=== PATIENT | female | born 1995 | race African-American/Black ===

== ENCOUNTER 2017-03-12 21:22 | Emergency (ER) | payer BC ==
[~2017-03-12] VITALS: Ht 167.6 cm; Wt 93.0 kg
[2017-03-12 21:40] VITALS: BP 131/68
--- NOTE | 2017-03-12 22:12 | PHYS DOC ---
Past Medical History Past Medical History: No Pertinent History Past Surgical History: No Surgical History Alcohol Use: None Drug Use: None Adult General Chief Complaint Chief Complaint: SORE THROAT HPI HPI Patient is a 21 year old female presents to the emergency department with a 3 day history of cough and congestion with sore throat. Patient states she has been taking ibuprofen and some cough medication over the counter. Patient denies fever, chills, nausea or vomiting. Review of Systems Review of Systems Constitutional: Denies fever or chills [] Eyes: Denies change in visual acuity, redness, or eye pain [] HENT: nasal congestion and sore throat [] Respiratory: Denies cough or shortness of breath [] Cardiovascular: No additional information not addressed in HPI [] GI: Denies abdominal pain, nausea, vomiting, bloody stools or diarrhea [] : Denies dysuria or hematuria [] Musculoskeletal: Denies back pain or joint pain [] Integument: Denies rash or skin lesions [] Neurologic: Denies headache, focal weakness or sensory changes [] Endocrine: Denies polyuria or polydipsia [] Physical Exam Physical Exam Constitutional: Well developed, well nourished, no acute distress, non-toxic appearance. [] HENT: Normocephalic, atraumatic, bilateral external ears normal, oropharynx moist, no oral exudates, nose normal. Bilateral TM normal, throat with clear post nasal drip noted. Bilateral anterior cervical adenopathy noted. Eyes: PERRLA, EOMI, conjunctiva normal, no discharge. [] Neck: Normal range of motion, no tenderness, supple, no stridor. [] Cardiovascular:Heart rate regular rhythm, no murmur [] Lungs & Thorax: Bilateral breath sounds clear to auscultation [] Skin: Warm, dry, no erythema, no rash. [] Back: No tenderness Extremities: No tenderness, no cyanosis, no clubbing, ROM intact, no edema. [] Neurologic: Alert and oriented X 3, normal motor function, normal sensory function, no focal deficits noted. [] Psychologic: Affect normal, judgement normal, mood normal. [] Current Patient Data Vital Signs Vital Signs Date Time Temp Pulse Resp B/P (MAP) Pulse Ox O2 Delivery O2 Flow Rate FiO2 03/12/17 21:40 98.8 76 20 99 Room Air 98.8 EKG EKG [] Radiology/Procedures Radiology/Procedures [] Course & Med Decision Making Course & Med Decision Making Pertinent Labs and Imaging studies reviewed. (See chart for details) Rapid strep negative. Patient was encouraged to use Mucinex DM over the counter to help relieve the nasal congestion and cough. Tylenol or Ibuprofen for fever, chills or generalized body aches. Drink plenty of fluids. Followup with primary care provider in 3-5 days. Signs and symptoms to return to the emergency department has been provided. [] Dragon Disclaimer Dragon Disclaimer This electronic medical record was generated, in whole or in part, using a voice recognition dictation system. Departure Departure Impression: Primary Impression: URI (upper respiratory infection) Disposition: HOME, SELF-CARE Condition: STABLE Referrals: NO PCP (PCP) Patient Instructions: Upper Respiratory Infection, Adult, [id number] Additional Instructions: Rapid strep negative Drink plenty of fluids Tylenol and ibuprofen for fever, chills and generalized body aches Mucinex DM as directed by manufacture over the counter. Rest as much as possible Followup with primary care provider in 3-5 days Return to emergency department as needed for signs and symptoms that become worse DAVID COUGHLIN APRN Mar 12, 2017 22:12
[2017-03-13 07:42] LABS: NEGATIVE OBC STREP NEG; POSITIVE OBC STREP POS
== END 2017-03-12 22:57 | disposition home or self-care (01) ==
LOC: ER 21:22
DX: J06.9 Acute upper respiratory infection, unspecified (principal)
CPT/HCPCS: 87070; 87880; 99284

== ENCOUNTER 2019-01-05 13:47 | Emergency (ER) | payer BC ==
[~2019-01-05] VITALS: Ht 170.2 cm; Wt 93.0 kg
[2019-01-05 13:54] VITALS: BP 167/87
[2019-01-05] MEDS ORDERED: NAPR-683 PO (14:52)
--- NOTE | 2019-01-05 14:52 | PHYS DOC ---
Past Medical History Past Medical History: No Pertinent History Past Surgical History: Alcohol Use: Occasionally Drug Use: None Adult General Chief Complaint Chief Complaint: CHEST PAIN HPI HPI Patient is a 23 year old female who brought in by EMS because of chest pain. Patient complaining of intermittent episodes of right-sided chest pain since 10 AM that resolves with activity and returns with rest as an aching pain and rated her pain 5/10. Patient denies other symptoms and history of injury and the same pain. She does not have cardiac risk factors. Review of Systems Review of Systems Constitutional: Denies fever or chills [] Eyes: Denies change in visual acuity, redness, or eye pain [] HENT: Denies nasal congestion or sore throat [] Respiratory: Denies cough or shortness of breath [] Cardiovascular: No additional information not addressed in HPI [] GI: Denies abdominal pain, nausea, vomiting, bloody stools or diarrhea [] : Denies dysuria or hematuria [] Musculoskeletal: Denies back pain or joint pain [] Integument: Denies rash or skin lesions [] Neurologic: Denies headache, focal weakness or sensory changes [] Endocrine: Denies polyuria or polydipsia [] All other systems were reviewed and found to be within normal limits, except as documented in this note. Allergies Allergies Allergies Coded Allergies Type Severity Reaction Last Updated Verified No Known Drug Allergies 01/05/19 No Physical Exam Physical Exam Constitutional: Well developed, well nourished, no acute distress, non-toxic appearance. [] HENT: Normocephalic, atraumatic, oropharynx moist. Eyes: PERRLA, EOMI, conjunctiva normal, no discharge. [] Neck: Normal range of motion, no tenderness, supple, no stridor. [] Cardiovascular:Heart rate regular rhythm, no murmur [] Lungs & Thorax: Bilateral breath sounds clear to auscultation, right sided chest wall reproducible pain[] Abdomen: Bowel sounds normal, soft, no tenderness, no masses, no pulsatile masses. [] Skin: Warm, dry, no erythema, no rash. [] Back: No tenderness, no CVA tenderness. [] Extremities: No tenderness, no cyanosis, no clubbing, ROM intact, no edema. [] Neurologic: Alert and oriented X 3, normal motor function, normal sensory function, no focal deficits noted. [] Psychologic: Affect normal, judgement normal, mood normal. [] Current Patient Data Vital Signs Vital Signs Date Time Temp Pulse Resp B/P (MAP) Pulse Ox O2 Delivery O2 Flow Rate FiO2 01/05/19 13:54 98.2 97 18 167/87 (113) 97 Room Air 98.2 Lab Values Laboratory Tests Test 01/05/19 14:39 POC Urine HCG, Qualitative Hcg negative (Negative) EKG EKG EKG interpreted by me. EKG at 1351 showed normal sinus rhythm at rate of 78, no acute ST and T-wave abnormalities. Radiology/Procedures Radiology/Procedures [] Course & Med Decision Making Course & Med Decision Making Evaluation of patient in ER showed 23-year-old female patient comes of intermittent episodes of right chest wall pain for the last few hours. Patient had unremarkable EKG and her pain resolved while she was in ER and didn't want more evaluation. Dragon Disclaimer Dragon Disclaimer This electronic medical record was generated, in whole or in part, using a voice recognition dictation system. Departure Departure Impression: Primary Impression: Musculoskeletal chest pain Disposition: 01 HOME, SELF-CARE (at 1449) Condition: IMPROVED Referrals: NO PCP (PCP) Patient Instructions: Chest Wall Pain Additional Instructions: Drink plenty of liquids Follow-up with your primary care physician in 3-5 days Return to ER if not getting better Scripts Naproxen (NAPROSYN) 500 Mg Tablet 1 TAB PO BID for pain, #20 TAB Prov: WAI LARRY MD 01/05/19 WAI LARRY MD January 05, 2019 14:52
--- NOTE | 2019-01-06 07:24 | EKG ---
[facility] [address] [place] [address] Test Date: 2019-01-05 Test Time: 13:51:58 Pat Name: CRISTY JEWELL Department: Room: Gender: F [employer] Equipment [employer]: : 1995 Requested By: WAI LARRY Order Number: [id number] Reading MD: Lázaro Frey Measurements Intervals North Rate: 78 P: 52 WA: 176 QRS: 23 QRSD: 86 T: 39 QT: 354 QTc: 407 Interpretive Statements SINUS RHYTHM Electronically Signed On 01-24-2019 12:48:40 CDT by Lázaro Frey
== END 2019-01-05 15:15 | disposition home or self-care (01) ==
LOC: ER 13:47
DX: R07.89 Other chest pain (principal); Z98.890 Other specified postprocedural states
CPT/HCPCS: 81025; 93005; 99283